=== PATIENT | male | born 1980 | race Caucasian/White ===

== ENCOUNTER 2019-08-19 21:59 | Emergency (ER) | payer MEDICAID ==
[~2019-08-19] VITALS: Ht 188 cm; Wt 75.5 kg
[2019-08-19 22:00] VITALS: BP 144/78
--- NOTE | 2019-08-19 22:17 | NUR ---
PT UP TO RESTROOM FOR URINE SAMPLE COLLECTION.
[2019-08-19 22:36] LABS: MICROSCOPIC AUTO
[2019-08-19] MEDS ORDERED: AZITHROMYCIN 500 MG TABLET ONE (23:54)
[2019-08-19] MEDS ORDERED: CEFTRIAXONE 250 MG ONE (23:54)
[2019-08-19] MEDS ORDERED: LIDOCAINE-MPF 1%, 2ML ONE (23:54)
[2019-08-20] MEDS ORDERED: AZITHROMYCIN 500 MG TABLET PO ONE
[2019-08-20] MEDS ORDERED: CEFTRIAXONE 250 MG IM ONE
== END 2019-08-20 00:06 | disposition home or self-care (01) ==
LOC: ED 08-20 00:02
DX: A54.01 Gonococcal cystitis and urethritis, unspecified (principal); N50.812 Left testicular pain; R30.0 Dysuria; F17.200 Nicotine dependence, unspecified, uncomplicated
CPT/HCPCS: 81001; 87086; 87491; 87591; 96372; 99283; J0696

== ENCOUNTER 2020-04-09 14:29 | Emergency (ER) | payer MEDICAID ==
[~2020-04-09] VITALS: Ht 188 cm; Wt 86.0 kg
[2020-04-09 14:48] VITALS: BP 132/97
[2020-04-09] MEDS ORDERED: CEFTRIAXONE 250 MG ONE (15:19)
[2020-04-09] MEDS ORDERED: AZITHROMYCIN 250 MG TABLET ONE (15:19)
[2020-04-09] MEDS ORDERED: AZITHROMYCIN 500 MG TABLET PO ONE (15:30)
[2020-04-09] MEDS ORDERED: CEFTRIAXONE 250 MG IM ONE (15:30)
== END 2020-04-09 16:16 | disposition home or self-care (01) ==
LOC: ED 16:08
DX: N34.2 Other urethritis (principal); F17.210 Nicotine dependence, cigarettes, uncomplicated
CPT/HCPCS: 96372; 99283; 99406; J0696

== ENCOUNTER 2020-04-24 15:38 | Emergency (ER) | payer MEDICAID ==
[~2020-04-24] VITALS: Ht 188 cm; Wt 88.3 kg
--- NOTE | 2020-04-24 16:31 | NUR ---
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
[2020-04-24] MEDS ORDERED: DIAZEPAM 5 MG TABLET ONE (16:56)
[2020-04-24] MEDS ORDERED: KETOROLAC 30 MG/1 ML ONE (16:56)
[2020-04-24] MEDS ORDERED: HYDROcodone/APAP 5/325 TABLET ONE (16:57)
[2020-04-24] MEDS ORDERED: DIAZEPAM 5 MG TABLET PO ONE (17:00)
[2020-04-24] MEDS ORDERED: HYDROcodone/APAP 5/325 TABLET PO ONE (17:00)
[2020-04-24] MEDS ORDERED: KETOROLAC 30 MG/1 ML IM ONE (17:00)
--- NOTE | 2020-04-24 17:10 | NUR ---
PT AMBULATING TO RADIOLOGY FOR MORE IMAGING. STATES, "I LIVE AT A 5/10 PAIN LEVEL ALL THE TIME. RIGHT NOW IT'S ABOUT 7/10." PO MEDS GIVEN PER ORDERS BEFORE GOING TO XR.
--- NOTE | 2020-04-24 17:52 | NUR ---
CAMILO RAHMAN WAS IN FOR RECHECK. PT STATES FRIEND WILL COME TO PICK HIM UP AND MAKE SURE HE GETS HOME OKAY.
[2020-04-24 17:56] VITALS: BP 96/63
--- NOTE | 2020-04-24 18:02 | NUR ---
D/C INSTRUCTIONS, MEDS & F/U APPT RV'WD WITH PT, HE VERBALIZES UNDERSTANDING. RX GIVEN X2. PT AMBULATED OUT OF ED WITHOUT DIFFICULTY.
== END 2020-04-24 18:03 | disposition home or self-care (01) ==
LOC: ED 17:10
DX: S39.012A Strain of muscle, fascia and tendon of lower back, initial encounter (principal); M54.16 Radiculopathy, lumbar region; G89.11 Acute pain due to trauma; M54.41 Lumbago with sciatica, right side; M25.551 Pain in right hip; V13.4XXA Pedal cycle driver injured in collision with car, pick-up truck or van in traffic accident, initial encounter; Y93.89 Activity, other specified; Y92.488 Other paved roadways as the place of occurrence of the external cause; Y99.8 Other external cause status
CPT/HCPCS: 72110; 72220; 73502; 96372; 99284; J1885